=== PATIENT | female | born 1960 | race Two or more races ===

== ENCOUNTER 2016-10-01 17:25 | Emergency (ER) | payer MEDICAID, OTHER ==
[~2016-10-01] VITALS: Ht 152.4 cm; Wt 53.5 kg
[2016-10-01 19:43] VITALS: BP 122/64
[2016-10-03] MEDS ORDERED: TETRACAINE 1% INJ 2 ML VIAL IJ ONE (14:36)
== END 2016-10-01 20:27 | disposition home or self-care (01) ==
LOC: ER 17:28
DX: F41.0 Panic disorder [episodic paroxysmal anxiety] (principal); F32.9 Major depressive disorder, single episode, unspecified; M19.90 Unspecified osteoarthritis, unspecified site